=== PATIENT | female | born 1940 | race Caucasian/White ===

== ENCOUNTER 2017-12-11 16:09 | Inpatient (IN) | payer OTHER, BC ==
[~2017-12-11] VITALS: Ht 157.5 cm; Wt 141.1 kg
--- NOTE | ~2017-12-11 | EKG ---
[address] [place] [address] ELECTROCARDIOGRAM REPORT Name: PAGE KELLY Room #: 206-P ADM IN M.R.#: [id number] Admission: 12/11/17 Attend Phys: Amairani Gamboa Discharge: Date of : 44 Report #: [id number] THIS REPORT FOR: //name// [facility] ED Test Date: 2017-12-11 Test Time: 18:16:24 Pat Name: PAGE KELLY Department: Room: Gender: F Account Developer: MZOOK : 1940 Requested By: Tierney Ruiz Order Number: [id number] MD: Miguel Najrea Measurements Intervals [place] Rate: 67 P: MS: QRS: 26 QRSD: 127 T: -58 QT: 400 QTc: 423 Interpretive Statements Atrial fibrillation Occasional premature ventricular or aberrantly conducted supraventricular complexes Nonspecific T abnormalities, diffuse leads Compared to ECG 06/22/2015 07:59:51 Premature ventricular complexes now present Electronically Signed On 12-12-2017 7:53:17 CDT by Miguel Najera [email or web address] <ELECTRONICALLY SIGNED> By: Miguel Najera MD, [facility] 12/12/17 0753 1816 1816 Miguel Najera MD, [facility] /EPI
--- NOTE | ~2017-12-11 | HC ---
[facility] [address] [address] CONSULTATION Name: PAGE KELLY Room #: 206-P ADM IN M.R.#: [id number] Admission: 12/11/17 Attend Phys: Amairani Gamboa Discharge: Date of : 44 Report #: [id number] THIS REPORT FOR: //name// CC: Nicky Vazquez DATE OF SERVICE: 12/11/2017 HISTORY OF PRESENT ILLNESS: The patient is a 77-year-old female who is well known to myself, who originally came in with progressive hip pain and shortness of breath. She has a long history of diastolic dysfunction and moderate pulmonary hypertension with pulmonary pressures 60-70 mmHg. She has been marginally noncompliant with her Demadex. She originally called the office today asking for clearance for bariatric surgery, but has not been evaluated. She also has a history of ITP. It was actually the back and hip pain that brought her in and then the progressive dyspnea and shortness of breath, with her daughter who is a nurse practitioner and son-in-law, who is a physician were able to corroborate that she is markedly dyspneic, has PND, orthopnea and can barely walk across the room. Interestingly, the lab work reveals creatinine of 2.6, her baseline is 1.5. There is some mild vascular congestion on her chest x-ray. She allegedly has been compliant with medication. She has been anticoagulated for permanent AFib with Savaysa 30, rosuvastatin 10, Aldactone 25, vitamin D3, Nexium, levothyroxine, torsemide 20 was instructed to double the dose, but is only minimally been doing this and has missed some. Diltiazem 240, atenolol 100, Zetia 10, gabapentin 300 b.i.d., potassium 20. PAST MEDICAL HISTORY: Positive for the recurrent heart failure, noncompliance, hypertension, hypercholesterolemia, permanent AFib, DJD, ITP, left total knee replacement, bilateral carpal tunnel, hysterectomy, back surgery x 2, cholecystectomy. ALLERGIES: HYDRALAZINE. SOCIAL HISTORY: She lives independently. Her daughter is present, who is a nurse practitioner. No current alcohol, drug use or tobacco. FAMILY HISTORY: Negative for premature coronary disease. LABORATORY DATA: Potassium 5.0, creatinine 2.6, BUN 58. BNP 1175. H and H 12 and 39.7, white count 9.0. D-dimer 1.32. V/Q scan was negative low probability and deep venous Doppler showed no clot. REVIEW OF SYSTEMS: Negative except for as stated above, progressive dyspnea, shortness of breath and orthopnea. [facility] [address] [place] [address] CONSULTATION Name: PAGE KELLY BRIGHT Room #: 206-P ADM IN M.R.#: [id number] Admission: 12/11/17 Attend Phys: Amairani Gamboa Discharge: Date of : 44 Report #: [id number] PHYSICAL EXAMINATION: VITAL SIGNS: Pulse is 80s and irregular. Blood pressure 130/60. GENERAL: She is not in acute distress, mildly dyspneic. HEENT: Eyes reveal xanthelasmas. Pharynx is clear. NECK: Shows preserved upstrokes. There is a trace of JVD noted at 45-degree angle. LUNGS: Have prolonged expiratory phase, fine basilar crackles bilaterally. CARDIOVASCULAR: Irregularly irregular, S1, S2, distant heart tones. ABDOMEN: Soft bowel sounds, nontender. EXTREMITIES: Reveal 1 to 2+ edema. NEUROLOGIC: Intact. MUSCULOSKELETAL: Generalized arthritic changes, valgus deformity of the knees. SKIN: Warm and dry with some venous stasis dermatitis. ASSESSMENT: 1. Acute on chronic renal insufficiency, acute worsening from baseline, possibly a component of azotemia. 2. Acute chronic diastolic valvular heart failure. 3. Moderate pulmonary hypertension. We will repeat echo Doppler in a.m. Calculate PA pressures. 4. Hypertension. 5. Hypercholesterolemia. 6. Noncompliance with diet and medications. RECOMMENDATIONS AND PLAN: I agreed with the V/Q and deep venous study. I need to reevaluate with this low level of renal function the novel agent. Hold anticoagulation for now. I need some clarification on the history of the ITP. We do not have those records present. Nephrology consult, presumably renal ultrasound and further urine studies. I do not believe this is an acute demise of systolic function. She has a history of diastolic dysfunction and moderate valvular insufficiency with moderate MR and TR by history. I suspect we will need further diuresis, would like further discussion with Nephrology in the a.m. I do have more recent echos and nuclear stress tests in the office that were unchanged and negative for ischemia. I will place those on the chart. We will follow with you. Thank you for asking me to assist in the care of this patient. <ELECTRONICALLY SIGNED> By: Ajay Dodge MD, FACC 12/12/17 1124 2244 0239 Ajay Dodge MD, FACC /nt
--- NOTE | ~2017-12-11 | HC ---
[facility] [address] [place] [address] CONSULTATION Name: LETICIAPAGE ANN Room #: 206-P ADM IN M.R.#: [id number] Admission: 12/11/17 Attend Phys: Amairani Gamboa Discharge: Date of : 44 Report #: [id number] THIS REPORT FOR: //name// CC: Nicky Vazquez REASON FOR CONSULTATION: Elevated creatinine. REASON FOR PRESENTATION: Back pain and posterior head pain. HISTORY OF PRESENT ILLNESS: The patient presented with progressive left-sided head and back pain. She is known to have severe pulmonary hypertension with a PA pressure lastly reported to be 56. She is also known to have diastolic dysfunction. She has history of idiopathic thrombocytopenic purpura. She visited with Dr. Dodge's office because of numerous complaints including swelling and lower extremity edema with significant weight gain and was seeking for cardiac clearance for bariatric surgery. She was found to have an elevated creatinine above her baseline. I am being asked to manage her chronic kidney disease. She has been prescribed to take torsemide; however, because of frequent urination and her inability to move around she was not taking it appropriately. There seems to be some issues with major noncompliance. Previous laboratory values reviewed and she had a creatinine of around 1.6 back in 2016. Most recent creatinine is elevated at 2.6. She has never seen a deep well contractor. She denies nonsteroidal anti-inflammatory medications. Previously noted is the fact that she had some proteinuria on her UA, but no evaluation of the urine protein to creatinine ratio was done. PAST MEDICAL HISTORY: 1. Hyperlipidemia. 2. Atrial fibrillation. 3. Hypothyroidism. 4. Remote history of left atrial thrombus. 5. Osteoarthritis. 6. Hysterectomy. 7. Back surgery. 8. Left total knee replacement. 9. Morbid obesity. MEDICATIONS: 1. Torsemide. 2. Atenolol. 3. Diltiazem. 4. Levothyroxine. 5. Esomeprazole. 6. Spironolactone. [facility] [address] [place] [address] CONSULTATION Name: PAGE KELLY BRIGHT Room #: [address] [place] [address] IN M.R.#: [id number] Admission: 12/11/17 Attend Phys: Amairani Gamboa Discharge: Date of : 44 Report #: [id number] 7. Gabapentin. 8. Potassium. ALLERGIES: HYDRALAZINE. SOCIAL HISTORY: She denies drug or alcohol abuse. FAMILY HISTORY: Significant for hypertension. REVIEW OF SYSTEMS: GENERAL: She did have some weight gain. PULMONARY: Significant for shortness of breath. CARDIOVASCULAR: Significant for dyspnea on exertion, lower extremity edema worsening. GASTROINTESTINAL: No nausea or vomiting. GENITOURINARY: Frequency, but no dysuria. MUSCULOSKELETAL: As per the history of present illness. SKIN: She does have some chronic venous stasis changes. No rash or ulcerations. PHYSICAL EXAMINATION: VITAL SIGNS: Blood pressure is 115/65. Pulse rate was 75. HEAD AND NECK: No jugular venous distention. CHEST: Decreased air entry bilaterally. CARDIOVASCULAR: Distant. No rub detected. ABDOMEN: Morbid obesity with abdominal wall edema. LOWER EXTREMITIES: +3 edema. LABORATORY DATA: Reviewed. Chronic thrombocytopenia with a platelet of 67. Chemistry: Sodium 140, potassium 5.1, BUN 54, creatinine 2.3. TSH is elevated at 5.0. D-dimer was mildly elevated. Lung scan V/Q negative. Chest x-ray: Mild pulmonary congestions with pacemaker leads. ASSESSMENT, IMPRESSION, PLAN: 1. Chronic kidney disease. 2. Pulmonary hypertension. 3. Atrial fibrillation. 4. Diastolic heart failure. 5. Noncompliance with medical care. 6. Hypothyroidism. 7. Hypertension. 8. She does have an evidence of chronic kidney disease based on her previous [facility] [address] [place] [address] CONSULTATION Name: PAGE KELLY BRIGHT Room #: 206-P ADM IN M.R.#: [id number] Admission: 12/11/17 Attend Phys: Amairani Gamboa Discharge: Date of : 44 Report #: [id number] values. 9. I will initiate the appropriate workup for her chronic kidney disease including an evaluation of urine protein to creatinine ratio. UA has been sent. Unfortunately, she received a dose of Toradol yesterday and this has to be discontinued. 10. Discontinue the IV fluid. 11. Keep holding the torsemide for now. 12. Okay to resume her diltiazem and atenolol. 13. Will likely need aggressive diuresis to be initiated in the next 24 hours. 14. Fluid and salt restrictions. 15. Repeat cardiac echo. We will continue to follow along. By: [id number] [id number] Oksana Kelly MD /nt
--- NOTE | ~2017-12-11 | EKG ---
[address] [place] [address] ELECTROCARDIOGRAM REPORT Name: PAGE KELLY Room #: 206-P ADM IN M.R.#: [id number] Admission: 12/11/17 Attend Phys: Amairani Gamboa Discharge: Date of : 44 Report #: [id number] THIS REPORT FOR: //name// [facility] Test Date: 2017-12-12 Test Time: 06:29:29 Pat Name: PAGE KELLY Department: Room: 206 P Gender: F Research Clerk: DOROTA : 1940 Requested By: Ajay Dodge Order Number: [id number] MD: Miguel Najera Measurements Intervals [place] Rate: 83 P: ID: QRS: 31 QRSD: 93 T: -30 QT: 375 QTc: 441 Interpretive Statements Atrial fibrillation Low voltage, extremity and precordial leads Poor R wave progression Nonspecific ST and T wave abnormality Compared to ECG 06/22/2015 07:59:51 premature ventricular aberrantly conducted supraventricular complexes are no longer present Electronically Signed On 12-12-2017 7:58:37 CDT by Miguel Najera [email or web address] <ELECTRONICALLY SIGNED> By: Miguel Najera MD, [facility] 12/12/17 0758 0629 0629 Miguel Najera MD, [facility] /EPI
--- NOTE | ~2017-12-11 | 2DMMODE ---
[facility] [address] [place] [address] 2 D/M-MODE ECHOCARDIOGRAM Name: PAGE KELLY [facility] Room #: 206-P ADM IN M.R.#: [id number] Admission: 12/11/17 Attend Phys: Amairani White Discharge: Date of : 44 Date of Service: 12/12/17 1457 Report #: [id number] THIS REPORT FOR: //name// APPROVED REPORT Study performed: 12/12/2017 13:13:00 EXAM: Comprehensive 2D, Doppler, and color-flow Echocardiogram Patient Location: Bedside Room #: 206 Status: routine BSA: 2.31 HR: 74 bpm BP: 115/63 mmHg Rhythm: Atrial Fibrillation, PVCs Other Information Study Quality: Fair Technically limited study due to morbid obesity and limited mobility. Indications Chest pain, pulmonary HTN. Hx: HF, HTN, HLP, Afib, pacemaker Echo Enhancing Agent Indication: Endocardial border delineation Agent(s) / Amount(s) Used: Optison 4 cc 2D Dimensions RVDd: 36.92 mm LVEF(%): 66.04 (>50%) IVSd: 14.11 (7-11mm) LVOT Diam: 19.01 (18-24mm) LVDd: 40.36 mm PWd: 10.46 (7-11mm) Ascending Ao: 28.65 (22-36mm) LVDs: 25.86 (25-40mm) Aortic Root: 30.38 mm Keating's LVEF: 66.04 % Volumes Left Atrial Volume (Systole) Single Plane 4CH: 79.27 mL Single Plane 2CH: 73.26 mL LA ESV Index: 36.00 mL/m2 Aortic Valve AoV Peak Bobby.: 1.13 m/s AO Peak Gr.: 5.14 mmHg LVOT Max P.59 mmHg [facility] [place] [address] 2 D/M-MODE ECHOCARDIOGRAM Name: PAGE KELLY [facility] Room #: 206-P ADM IN M.R.#: [id number] Admission: 12/11/17 Attend Phys: Amairani White Discharge: Date of : 44 Date of Service: 12/12/17 1457 Report #: [id number] LVOT Max V: 0.80 m/s EMMA Vmax: 2.01 cm2 Mitral Valve MV Decel. Time: 206.16 ms MV E Max Bobby.: 1.32 m/s Pulmonary Valve PV Peak Bobby.: 0.88 m/s PV Peak Gr.: 3.10 mmHg Tricuspid Valve TR Peak Bobby.: 2.48 m/s RAP Estimate: 5.00 mmHg TR Peak Gr.: 24.75 mmHg PA Pressure: 30.00 mmHg Left Ventricle The left ventricle is normal size. Mild concentric left ventricular hypertrophy. Left ventricular systolic function is normal. LVEF is 55%. This study is not technically sufficient to allow evaluation of the LV diastolic function. Right Ventricle The right ventricle is normal size. The right ventricular systolic function is normal. Pacemaker lead is present in the right ventricle. Atria Left atrium is dilated. Right atrium is dilated. Aortic Valve The aortic valve is not well visualized but appears sclerotic. No aortic regurgitation is present. There is no aortic valvular stenosis. Mitral Valve The mitral valve is normal in structure. Mild mitral annular calcification. Mild mitral regurgitation. Tricuspid Valve The tricuspid valve is normal in structure. Mild to moderate tricuspid regurgitation. Estimated PAP is 30mmHg. Pulmonic Valve Pulmonic valve is not well visualized. Trace pulmonic regurgitation. [employer] [facility] [address] [place] [address] 2 D/M-MODE ECHOCARDIOGRAM Name: PAGE KELLY BRIGHT Room #: 206-P [facility] IN M.R.#: [id number] Admission: 12/11/17 Attend Phys: Amairani White Discharge: Date of : 44 Date of Service: 12/12/17 1457 Report #: [id number] The aortic root is normal in size. The ascending aorta is normal in size. IVC is normal in size and collapses >50% with inspiration. Pericardium There is no pericardial effusion. <Conclusion> The left ventricle is normal size. Mild concentric left ventricular hypertrophy. LVEF is 55%. This study is not technically sufficient to allow evaluation of the LV diastolic function. The right ventricle is normal size. Left atrium is dilated. Right atrium is dilated. The aortic valve is not well visualized but appears sclerotic. There is no aortic valvular stenosis. The mitral valve is normal in structure. Mild mitral annular calcification. Mild mitral regurgitation. Mild to moderate tricuspid regurgitation. Estimated PAP is 30mmHg. The aortic root is normal in size. There is no pericardial effusion. <ELECTRONICALLY SIGNED> By: Ajay Dodge MD, FACC 12/12/17 1457 1457 145 Ajay Dodge MD, FACC /INF
[~2017-12-11 16:09] MED LIST: ALDACTONE25 MG PO; ASPIRIN EC325 M1 PO; ATENOLOL 50MG T50 M1 PO; BENICAR40 MG PO; CELEBREX 200 M200 MG PO; CRESTOR10 MG PO; DEMADEX20 MG PO; FISH OIL 1,0001 EAC7; FLECAINIDE ACET50 M2 PO; K-DUR 20 MEQ T20 MEQ PO; LASIX 40 MG TAB40 M2 PO; LEVOTHYROXIN0.025 MG PO; LIPITOR40 MG PO; NEURONTIN 300300 M1 PO; PACERONE 200 M200 M1 PO; PRADAXA150 MG PO; SAVAYSA60 MG PO; VITAMIN D31000 UNI2 PO
[2017-12-11 16:19] VITALS: BP 106/66
[2017-12-11] MEDS ORDERED: NEXIUM40 MG PO (16:36)
[2017-12-11] MEDS ORDERED: SYNTHROID100 MC1 PO (16:37)
[2017-12-11] MEDS ORDERED: DEMADEX20 MG PO (16:38)
[2017-12-11] MEDS ORDERED: EZETIMIBE10 MG PO (16:39)
[2017-12-11] MEDS ORDERED: CARDIZEM CD240 MG PO (16:40)
[2017-12-11] MEDS ORDERED: ATENOLOL 100MG100 MG PO (16:41)
[2017-12-11 18:50] LABS: ABSOLUTE NEUTROPHILS 6.8 thou/uL (1.4-8.2); BASOPHILS 0.5 % (0.0-2.0); EOSINOPHILS 2.3 % (0.0-3.0); HEMATOCRIT 39.7 % (37.0-47.0); HEMOGLOBIN 12.6 gm/dL (12.0-15.0); LYMPHOCYTES 9.8 % (24.0-44.0); MCH 27.7 pg (26.0-34.0); MCHC 31.8 g/dL (28.0-37.0); MCV 87.3 fL (80.0-100.0); PLATELET COUNT 67 thou/uL (150-400); POLYS 76.4 % (36.0-66.0); RBC 4.54 mil/uL (4.20-5.00)
[2017-12-11 18:59] LABS: ANION GAP 4 mmol/L (7-16); BUN 58 mg/dL (7-18); CALCIUM 8.9 mg/dL (8.5-10.1); CHLORIDE 103 mmol/L (98-107); CO2 32 mmol/L (21-32); CREATININE 2.6 mg/dL (0.6-1.0); GLUCOSE 102 mg/dL (74-106); SODIUM 139 mmol/L (136-145)
[2017-12-11 19:06] LABS: TROPONIN-I <0.06 ng/mL (<0.06)
[2017-12-11 20:31] VITALS: BP 102/42
[2017-12-11 21:51] VITALS: BP 140/71
[2017-12-12 00:06] VITALS: BP 128/78
[2017-12-12 04:45] VITALS: BP 123/60
[2017-12-12 07:20] VITALS: BP 115/65
[2017-12-12 07:31] LABS: CALCIUM 9.1 mg/dL (8.5-10.1); CREATININE 2.3 mg/dL (0.6-1.0); POTASSIUM 5.1 mmol/L (3.5-5.1)
[2017-12-12 11:59] VITALS: BP 115/63
[2017-12-12 15:15] VITALS: BP 116/57
[2017-12-12 20:00] VITALS: BP 133/72
[2017-12-13 03:05] LABS: ALBUMIN 3.2 g/dL (3.4-5.0); CALCIUM 8.7 mg/dL (8.5-10.1); PHOSPHORUS 3.7 mg/dL (2.5-4.9); POTASSIUM 5.1 mmol/L (3.5-5.1)
[2017-12-13 04:37] VITALS: BP 131/55
[2017-12-13 07:32] VITALS: BP 136/80
[2017-12-13 09:19] LABS: URINE BILIRUBIN NEGATIVE (Negative); URINE BLOOD 3+ (Negative); URINE CLARITY CLEAR; URINE COLOR YELLOW; URINE GLUCOSE-RANDOM* NEGATIVE (Negative); URINE KETONES NEGATIVE (Negative); URINE LEUKOCYTES 1+ (Negative); URINE NITRITE NEGATIVE (Negative); URINE PROTEIN (DIPSTICK) TRACE (Negative); URINE UROBILINOGEN 0.2 E.U./dl (0.2-1.0)
[2017-12-13 09:43] LABS: CASTS None Seen /LPF (None Seen); CRYSTALS None Seen /LPF (None Seen); SQUAMOUS 0-3 Few /LPF (0-3)
[2017-12-13 09:44] LABS: URINE WBC 6-15 Few /HPF (0-5)
[2017-12-13 09:45] LABS: BACTERIA 1-9 Few /HPF (None Seen)
[2017-12-13] MEDS ORDERED: ACETAMINOPHEN325 M1 PO (10:50)
[2017-12-13 11:37] VITALS: BP 136/80
== END 2017-12-13 12:34 | disposition home or self-care (01) | DRG 682 ==
LOC: ER 16:09 → EROBS 19:55 → 2N 19:55 → ENTRNSPT 12-13 11:53 → EDTRNSPTSTS 12-13 11:56 → 2N 12-13 12:34
PROVIDERS: Emergency Medicine; Hospitalist; Nurse Practitioner Acute Care
PROC: 3E0233Z Introduction of Anti-inflammatory into Muscle, Percutaneous Approach (ICD-10-PCS; principal; 2017-12-12)
DX: N17.9 Acute kidney failure, unspecified (principal); I50.33 Acute on chronic diastolic (congestive) heart failure; I13.0 Hypertensive heart and chronic kidney disease with heart failure and stage 1 through stage 4 chronic kidney disease, or unspecified chronic kidney disease; Z68.43 Body mass index [BMI] 50.0-59.9, adult; E78.00 Pure hypercholesterolemia, unspecified; I25.10 Atherosclerotic heart disease of native coronary artery without angina pectoris; M19.90 Unspecified osteoarthritis, unspecified site; Z96.652 Presence of left artificial knee joint; I48.2 Chronic atrial fibrillation; I27.20 Pulmonary hypertension, unspecified; E66.01 Morbid (severe) obesity due to excess calories; E03.9 Hypothyroidism, unspecified; G47.33 Obstructive sleep apnea (adult) (pediatric); I49.5 Sick sinus syndrome; N18.3 Chronic kidney disease, stage 3 (moderate); G89.29 Other chronic pain; Z90.49 Acquired absence of other specified parts of digestive tract; Z90.710 Acquired absence of both cervix and uterus; Z88.8 Allergy status to other drugs, medicaments and biological substances; Z91.14 Patient's other noncompliance with medication regimen; Z82.49 Family history of ischemic heart disease and other diseases of the circulatory system; Z79.899 Other long term (current) drug therapy
CPT/HCPCS: 10081

== ENCOUNTER → 2019-12-25 | Outpatient (CLI) | payer OTHER ==
[~2019-12-25] MED LIST changes: +ACETAMINOPHEN325 M1 PO; +ATENOLOL 100MG100 MG PO; +CARDIZEM CD240 MG PO; +EZETIMIBE10 MG PO; +NEXIUM40 MG PO; +SYNTHROID100 MC1 PO
== END ==
LOC: SJCVC 12:54
PROVIDERS: ATTEND Internal Medicine Cardiovascular Disease
DX: Z45.018 Encounter for adjustment and management of other part of cardiac pacemaker (principal); I48.21 Permanent atrial fibrillation; I25.10 Atherosclerotic heart disease of native coronary artery without angina pectoris; I27.20 Pulmonary hypertension, unspecified; E78.00 Pure hypercholesterolemia, unspecified; I34.0 Nonrheumatic mitral (valve) insufficiency; I11.0 Hypertensive heart disease with heart failure; I50.32 Chronic diastolic (congestive) heart failure; G47.33 Obstructive sleep apnea (adult) (pediatric); I49.5 Sick sinus syndrome; D68.59 Other primary thrombophilia; K21.9 Gastro-esophageal reflux disease without esophagitis; Z79.899 Other long term (current) drug therapy; Z82.49 Family history of ischemic heart disease and other diseases of the circulatory system

== ENCOUNTER → 2020-07-13 | Outpatient (CLI) | payer MEDICARE | LOC: SJCVCIMAG 08:39 | PROVIDERS: ATTEND Internal Medicine Cardiovascular Disease | DX: I07.1 Rheumatic tricuspid insufficiency (principal); I27.20 Pulmonary hypertension, unspecified; I25.10 Atherosclerotic heart disease of native coronary artery without angina pectoris; G47.33 Obstructive sleep apnea (adult) (pediatric); I48.21 Permanent atrial fibrillation; I49.5 Sick sinus syndrome; D68.59 Other primary thrombophilia; I11.0 Hypertensive heart disease with heart failure; I50.32 Chronic diastolic (congestive) heart failure; M19.90 Unspecified osteoarthritis, unspecified site; K21.9 Gastro-esophageal reflux disease without esophagitis; E78.00 Pure hypercholesterolemia, unspecified; Z95.0 Presence of cardiac pacemaker; Z90.49 Acquired absence of other specified parts of digestive tract; Z90.710 Acquired absence of both cervix and uterus; Z98.890 Other specified postprocedural states; Z88.8 Allergy status to other drugs, medicaments and biological substances; Z79.899 Other long term (current) drug therapy; Z82.49 Family history of ischemic heart disease and other diseases of the circulatory system ==

== ENCOUNTER → 2021-01-12 | Outpatient (CLI) | payer MEDICARE | LOC: SJCVC 11:38 | PROVIDERS: ATTEND Internal Medicine Cardiovascular Disease | DX: I11.0 Hypertensive heart disease with heart failure (principal); I50.32 Chronic diastolic (congestive) heart failure; I25.10 Atherosclerotic heart disease of native coronary artery without angina pectoris; I49.5 Sick sinus syndrome; I48.91 Unspecified atrial fibrillation; I27.20 Pulmonary hypertension, unspecified; I34.0 Nonrheumatic mitral (valve) insufficiency; E78.00 Pure hypercholesterolemia, unspecified; G47.33 Obstructive sleep apnea (adult) (pediatric); D68.59 Other primary thrombophilia; K21.9 Gastro-esophageal reflux disease without esophagitis; Z95.0 Presence of cardiac pacemaker; M19.90 Unspecified osteoarthritis, unspecified site; Z82.49 Family history of ischemic heart disease and other diseases of the circulatory system; Z72.89 Other problems related to lifestyle; Z79.899 Other long term (current) drug therapy; Z88.8 Allergy status to other drugs, medicaments and biological substances ==